=== PATIENT | male | born 1995 | race American Indian/Alaskan Native ===

== ENCOUNTER 2017-11-14 15:55 | Emergency (ER) | payer SELFPAY ==
[2017-11-14] MEDS ORDERED: ASPIRIN PO ONE (19:38)
[2017-11-14 19:39] VITALS: BP 168/124
== END 2017-11-14 16:30 | disposition left against medical advice (07) ==
LOC: ED 15:55
DX: J11.1 Influenza due to unidentified influenza virus with other respiratory manifestations (principal); Z53.21 Procedure and treatment not carried out due to patient leaving prior to being seen by health care provider